=== PATIENT | male | born 1990 | race Caucasian/White ===

== ENCOUNTER 2024-11-11 06:02 | Emergency (ER) | payer OTHER ==
[2024-11-11] MEDS ORDERED: EPINEPHrine 0.3 MG/0.3 ML Pen Autoinjector IM ONE (06:18)
[2024-11-11] MEDS: EPINEPHrine 1 MG/ML SDV IM ONE (06:34)
== END 2024-11-11 06:51 | disposition home or self-care (01) ==
LOC: JD.ED 06:02
DX: T78.40XA Allergy, unspecified, initial encounter (principal); Z79.899 Other long term (current) drug therapy; Z86.16 Personal history of COVID-19
CPT/HCPCS: 99283; A9270; J7512; Q0163